=== PATIENT | female | born 2000 | race African-American/Black ===

== ENCOUNTER 2023-06-26 16:27 | Emergency (ER) | payer BC, MEDICAID, SELFPAY ==
[2023-06-26 17:07] VITALS: BP 125/86; PULSE 84; RESP 17; TEMP 36.7; O2SAT 97; BMI 24.7
== END 2023-06-26 21:16 | disposition left against medical advice (07) ==
PROVIDERS: Emergency Provider Family Medicine
DX: Z53.21 Procedure and treatment not carried out due to patient leaving prior to being seen by health care provider (principal)
CPT/HCPCS: 81025

== ENCOUNTER 2023-06-27 11:36 | Emergency (ER) | payer BC, MEDICAID, SELFPAY ==
[2023-06-27 11:50] VITALS: BP 129/74; PULSE 99; RESP 16; TEMP 37.1; O2SAT 96; BMI 24.7
--- NOTE | 2023-06-27 12:14 | W.ED.GENADLT ---
HPI - General Adult General: Chief complaint: Vaginal Bleeding Stated complaint: abd pain, vaginal bleeding Time Seen by Provider: 06/27/23 12:08 Source: patient Mode of arrival: ambulatory Limitations: no limitations History of Present Illness: 23-year-old female states she had vaginal bleeding started yesterday states she just spotting yesterday and started to pass some clots today states her last menstruation was 6 weeks ago she states she may be she had a home test that state was faintly positive. She had some abdominal cramping denies any vomiting or fever Associated symptoms: Deny chest pain, dyspnea, headache(s), nausea, rash or vomiting Review of Systems Const: Denies: fever(s), chills, body aches or change in appetite ENMT: Denies: throat pain or dental pain Card: Denies: chest pain Resp: Denies: dyspnea GI: Reports: abdominal pain; Denies: nausea, vomiting or diarrhea : Reports: vaginal bleeding; Denies: dysuria Musc: Denies: neck pain or back pain Skin/Breast: Denies: rash Neuro: Denies: headache(s) PFSH ED PFSH: Social History Smoking and tobacco/nicotine status: current every day tobacco/nicotine user Physical Exam Const: COMMON NORMALS: no acute distress, patient oriented x3 and healthy appearing HENMT: COMMON NORMALS: normocephalic and atraumatic HEAD & SCALP: normocephalic and atraumatic Eye: COMMON NORMALS: conjunctivae normal CONJUNCTIVA: Yes conjunctivae normal Neck/C-Spine: COMMON NORMALS: full ROM and supple Chest: COMMONS NORMALS: normal inspection of the chest Resp: COMMON NORMALS: normal respiratory effort Cardio: COMMON NORMALS: regular rate, regular rhythm and No murmurs present (Cardio) RATE: regular rate RHYTHM: regular rhythm GI: COMMON NORMALS: Normal to inspection, nondistended, normoactive bowel sounds present, Soft to palpation, non-tender and no masses PALPATION: Yes Soft to palpation Extremity: COMMON NORMALS: normal to inspection and full ROM Neuro: COMMON NORMALS: patient oriented x3, moves all extremities and no focal motor deficits Psych: COMMON NORMALS: mental status grossly normal, Normal thought process present and cooperative THOUGHT PROCESS: Normal thought process present Skin: COMMON NORMALS: no rashes or lesions noted and no wounds GENERAL SKIN EXAM: no rashes or lesions noted Course Vital Signs: Vital signs: Vital Signs Temperature 98.7 F 06/27/23 11:50 Pulse Rate 99 06/27/23 11:50 Respiratory Rate 16 06/27/23 11:50 Blood Pressure 129/74 06/27/23 11:50 Pulse Oximetry 96 06/27/23 11:50 Oxygen Delivery Me thod Room Air 06/27/23 11:50 MDM - General Adult Medical Decision Making Patient presents here with abdominal pain along with vaginal bleeding is likely her menstruation she is not CT scan blood works normal she stable for discharge she is to follow-up with PCP return if worsening she is to take Motrin for pain at home Medical Records I reviewed the patient's medical records. Lab Data I reviewed the patient's lab results. 06/27/23 12:13 06/27/23 12:13 Radiology Impressions Abdomen/Pelvis CT 06/27/23 13:02 IMPRESSION: 1. No evidence of acute abnormality in the abdomen or pelvis. 2. Left-sided renal parenchymal scarring with moderate-severe hydronephrosis, possibly reflecting chronic obstructive uropathy. 3. Nonobstructive 4 mm right-sided renal stone. Laboratory Results WBC 16.76 10^3/uL (3.29-11.43) H 06/27/23 12:13 RBC 4.91 10^6/uL (3.85-5.65) 06/27/23 12:13 Hgb 14.10 g/dL (11.27-16.99) 06/27/23 12:13 Hct 43.8 % (36-47) 06/27/23 12:13 MCV 89.2 fl (85-98) 06/27/23 12:13 MCH 28.7 pg (27-33) 06/27/23 12:13 MCHC 32.2 g/dL (30-55) 06/27/23 12:13 RDW 12.3 % (12.1-15.1) 06/27/23 12:13 Plt Count 337 10^3/cmm (157-399) 06/27/23 12:13 MPV 10.7 fL (7.4-10.4) H 06/27/23 12:13 Neut % (Auto) 92.8 % 06/27/23 12:13 Lymph % (Auto) 5.6 % 06/27/23 12:13 [place] % (Auto) 0.6 % 06/27/23 12:13 Eos % (Auto) 0.1 % 06/27/23 12:13 Baso % (Auto) 0.2 % 06/27/23 12:13 Neut # (Auto) 15.57 10^3/uL (1.8-7.7) H 06/27/23 12:13 Lymph # (Auto) 0.9 10^3/uL (0.8-4.8) 06/27/23 12:13 [place] # (Auto) 0.1 10^3/uL (0.2-0.9) L 06/27/23 12:13 Eos # (Auto) 0.0 10^3/uL (0.0-0.8) 06/27/23 12:13 Baso # (Auto) 0.0 10^3/uL (0.0-0.1) 06/27/23 12:13 Nucleated RBC % (auto) 0 % 06/27/23 12:13 Nucleated RBCs # 0.0 /100WBC 06/27/23 12:13 Sodium 138 mmol/L (136-145) 06/27/23 12:13 Potassium 4.0 mmol/L (3.5-5.1) 06/27/23 12:13 Chloride 105 mmol/L (98-107) 06/27/23 12:13 Carbon Dioxide 23 mmol/L (22-29) 06/27/23 12:13 Anion Gap 14.0 (5-19) 06/27/23 12:13 BUN 18 mg/dL (6-20) 06/27/23 12:13 Creatinine 0.9 mg/dL (0.5-0.9) 06/27/23 12:13 GFR Calculation 93.1 mL/min (90-130) 06/27/23 12:13 Glucose 115 mg/dL (65-115) 06/27/23 12:13 Calculated Osmolality 289 mOsm/kg (285-295) 06/27/23 12:13 Calcium 9.6 mg/dL (8.5-10.5) 06/27/23 12:13 Total Bilirubin 0.3 mg/dL (0.15-1.2) 06/27/23 12:13 AST 35 U/L (0-32) H 06/27/23 12:13 ALT 105 U/L (0-33) H 06/27/23 12:13 Alkaline Phosphatase 101 U/L (35-105) 06/27/23 12:13 Total Protein 7.7 g/dL (6.6-8.7) 06/27/23 12:13 Albumin 4.4 g/dL (3.5-5.2) 06/27/23 12:13 Globulin 3.3 g/dL (1.3-4.6) 06/27/23 12:13 Ser , Semi-Qnt 1.00 mIU/mL 06/27/23 12:13 Urine Color Red (Yellow) A 06/27/23 12:53 Urine Appearance Bloody (CLEAR) A 06/27/23 12:53 Urine pH 6 (5-7) 06/27/23 12:53 Ur Specific [place] 1.020 (1.005-1.030) 06/27/23 12:53 Urine Protein Neg (Negative) 06/27/23 12:53 Urine Glucose (UA) Norm (Normal) 06/27/23 12:53 Urine Ketones Negative (Negative) 06/27/23 12:53 Urine Blood 3+ (Negative) H 06/27/23 12:53 Urine Nitrate Negative (Negative) 06/27/23 12:53 Urine Bilirubin Neg (Negative) 06/27/23 12:53 Urine Urobilinogen Norm mg/dL (Negative) 06/27/23 12:53 Ur Leukocyte Esterase Negative (Negative) 06/27/23 12:53 Urine RBC Too numerous to cnt /hpf (0-2) H 06/27/23 12:53 Urine WBC 5-10 /hpf (0-5) H 06/27/23 12:53 Ur Squamous Epith Cells None /hpf (0-5) 06/27/23 12:53 Amorphous Sediment Not Reportable 06/27/23 12:53 Urine Bacteria 1+ /hpf (NONE) H 06/27/23 12:53 Blood Type O Positive 06/27/23 12:13 Rho(D) Type Rh positive 06/27/23 12:13 Antibody Screen Negative 06/27/23 12:13 All radiology interpretation(s) finalized by discharge Discharge Plan Discharge Patient Disposition: Home Clinical Impression: Vaginal bleeding, Abdominal pain Condition: Stable Prescriptions: No Action albuterol sulfate 90 mcg/actuation HFA aerosol inhaler 2 inh inhalation Q4H PRN (Reason: shortness of breath or wheezing) Qty: 6.7 0RF prednisone 20 mg tablet 60 mg PO DAILY 5 Days Qty: 15 0RF azithromycin [Zithromax] 500 mg tablet 500 mg PO DAILY 5 Days Qty: 5 0RF Zofran 8 mg Tablet 8 mg PO Q8H PRN (Reason: Nausea And Vomiting) olanzapine 10 mg Tablet 10 mg PO QPM baclofen 10 mg Tablet 10 mg PO TID PRN (Reason: Muscle Spasm) propranolol 20 mg Tablet 20 mg PO TID PRN (Reason: Hypertension) buprenorphine-naloxone 8-2 mg Tablet, Sublingual 0.5 tab SUBLINGUAL QAM Discharge Orders: Discharge ED (Routine); Ordered 06/27/23 Ordered By: Jesus Forman Discharge Diet: Advance as tolerated Discharge Activity: Resume usual activity Patient Instructions: Abnormal (Dysfunctional) Uterine Bleeding (ED), Abdominal Pain (ED) Coding Level of Care Code ED [employer] Operator for Brown Ramirez
[2023-06-27 12:21] LABS: Basophils % 0.2 %; Eosinophils % 0.1 %; Hematocrit 43.8 % (36-47); Lymphocytes # 0.9 10^3/uL (0.8-4.8); Lymphocytes % 5.6 %; Mean Corpuscular HGB Conc 32.2 g/dL (30-55); Mean Corpuscular Hemoglobin 28.7 pg (27-33); Mean Corpuscular Volume 89.2 fl (85-98); Mean Platelet Volume 10.7 fL (7.4-10.4); Monocytes # 0.1 10^3/uL (0.2-0.9); Monocytes % 0.6 %; Neutrophils # 15.57 10^3/uL (1.8-7.7); Neutrophils % 92.8 %; Nucleated Red Blood Cells % 0 %; Platelet Count 337 10^3/cmm (157-399); Red Blood Count 4.91 10^6/uL (3.85-5.65); Red Cell Distribution Width 12.3 % (12.1-15.1); White Blood Count 16.76 10^3/uL (3.29-11.43)
[2023-06-27] MEDS: morphine 4 mg/mL SDV 1 mL IVP (12:21)
[2023-06-27] MEDS: ondansetron 2 mg/ML SDV 2 mL 4 MG IVP (12:21)
--- NOTE | 2023-06-27 13:02 | CTR_ITS ---
PROCEDURE INFORMATION: Exam: CT Abdomen And Pelvis With Contrast Exam date and time: 06/27/2023 1:46 PM Age: 23 years old Clinical indication: Abdominal pain; Prior surgery; Surgery date: 6+ months; Surgery type: RT renal stent removal; Open kidney; Additional info: Abd pain TECHNIQUE: Imaging protocol: Computed tomography of the abdomen and pelvis with contrast. Radiation optimization: All CT scans at this facility use at least one of these dose optimization techniques: automated exposure control; mA and/or kV adjustment per patient size (includes targeted exams where dose is matched to clinical indication); or iterative reconstruction. Contrast material: [id number]; Contrast volume: 100 ml; Contrast route: INTRAVENOUS (IV); COMPARISON: No relevant prior studies available. RADIATION DOSE METRICS: Total DLP (mGy-cm): 387.01 FINDINGS: Lungs: Subsegmental bibasilar atelectasis. The visualized lung bases are otherwise grossly clear. Diaphragm: No evidence of diaphragmatic defect. Liver: Hepatic steatosis. No evidence of focal hepatic lesion. Gallbladder and bile ducts: Unremarkable. No intra-hepatic or extra-hepatic biliary dilatation. Pancreas: Unremarkable. Spleen: Unremarkable. Adrenal glands: Unremarkable. Kidneys and ureters: 4 mm nonobstructive right-sided renal stone. Minimal right-sided pelviectasis. There is extensive parenchymal scarring on the left with moderate-severe hydronephrosis, possibly reflecting chronic obstructive uropathy. No evidence of ureteral stone at this time. Stomach and bowel: No evidence of bowel obstruction or perienteric inflammatory changes. Appendix: The appendix is not visualized, however there are no findings to suggest appendicitis. Intraperitoneal space: No evidence of free air or fluid collection. Vasculature: No aneurysmal dilatation or dissection of the abdominal aorta. The celiac trunk, SMA and KALEY are grossly patent. No evidence of IVC thrombus. The portal vein, SMV and splenic veins are grossly patent. Lymph nodes: No adenopathy. Urinary bladder: Grossly unremarkable. Reproductive: Grossly unremarkable. Bones/joints: No evidence of acute fracture or aggressive osseous lesion. Soft tissues: No evidence of fluid collection or hematoma in the superficial soft tissues. CT/CT abdomen pelvis w con* [id number] IMPRESSION: 1. No evidence of acute abnormality in the abdomen or pelvis. 2. Left-sided renal parenchymal scarring with moderate-severe hydronephrosis, possibly reflecting chronic obstructive uropathy. 3. Nonobstructive 4 mm right-sided renal stone.
[2023-06-27 13:08] LABS: Alanine Aminotransferase 105 U/L (0-33); Albumin Level 4.4 g/dL (3.5-5.2); Alkaline Phosphatase 101 U/L (35-105); Aspartate Amino Transferase 35 U/L (0-32); Blood Urea Nitrogen 18 mg/dL (6-20); Calcium 9.6 mg/dL (8.5-10.5); Carbon Dioxide 23 mmol/L (22-29); Chloride 105 mmol/L (98-107); Creatinine Clr Calc Pharmacy 86.4899; Globulin 3.3 g/dL (1.3-4.6); Glomerular Filtration Rate 93.1 mL/min (90-130); Glucose 115 mg/dL (65-115); Osmolality Calculated 289 mOsm/kg (285-295); Sodium 138 mmol/L (136-145); Total Bilirubin 0.3 mg/dL (0.15-1.2); Total Protein 7.7 g/dL (6.6-8.7)
[2023-06-27 13:15] LABS: Add Urine Microscopic? YES; Bilirubin Urine Neg (Negative); Blood Urine 3+ (Negative); Glucose Urine UA Norm (Normal); Ketones Urine Negative (Negative); Leukocyte Esterase Urine Negative (Negative); Nitrate Urine Negative (Negative); Protein Urine Neg (Negative); Urine Appearance Bloody (CLEAR); Urine Color Red (Yellow); Urobilinogen Urine Norm (Negative); pH Urine 6 (5-7)
[2023-06-27 13:16] LABS: Add Urine Culture? Yes; Bacteria Urine 1+ /hpf; RBC Urine TOO NUMEROUS TO CNT /hpf (0-2)
[2023-06-27] MEDS: HYDROmorphone 1 mg/mL INJ 1 mL IVP (13:40)
[2023-06-27] MEDS: iohexol 350 mg/mL 500 mL Btl (per mL) IV (13:51)
[2023-06-27 15:05] VITALS: BP 131/84; PULSE 89; RESP 16; TEMP 37.1; O2SAT 98
== END 2023-06-27 15:06 | disposition home or self-care (01) ==
PROVIDERS: Emergency Provider Emergency Medicine
DX: N93.9 Abnormal uterine and vaginal bleeding, unspecified (principal); R10.9 Unspecified abdominal pain; Z72.0 Tobacco use
CPT/HCPCS: 36415; 74177; 80053; 81001; 84702; 85025; 86850; 86900; 87086; 96374; 96375; 99285; J1170; J2270; J2405; Q9967

== ENCOUNTER → 2023-07-05 11:49 | Outpatient (BNVA) | payer BC, MEDICAID, SELFPAY | PROVIDERS: Visit Provider Nurse Practitioner Family | DX: N92.6 Irregular menstruation, unspecified (principal); Z20.2 Contact with and (suspected) exposure to infections with a predominantly sexual mode of transmission; N76.0 Acute vaginitis; B96.89 Other specified bacterial agents as the cause of diseases classified elsewhere | CPT/HCPCS: 81025; 87491; 87591 ==

== ENCOUNTER 2023-07-10 13:18 | Emergency (ER) | payer BC, MEDICAID, SELFPAY ==
[2023-07-10 13:25] VITALS: BP 116/80; PULSE 97; RESP 17; TEMP 36.8; O2SAT 97; BMI 26.5
[2023-07-10 13:28] VITALS: BP 115/76; PULSE 97; RESP 16; O2SAT 98
--- NOTE | 2023-07-10 13:38 | XRR_ITS ---
PROCEDURE INFORMATION: Exam: XR Chest Exam date and time: 07/10/2023 2:06 PM Age: 23 years old Clinical indication: Cough and shortness of breath; Patient HX: -possible allergic reaction; SOB; Cough; Chest congestion; Additional info: -possible allergic reaction; SOB; Cough; Chest congestion. TECHNIQUE: Imaging protocol: Radiologic exam of the chest. Views: 1 view. COMPARISON: CT abdomen pelvis w con* [id number] 06/27/2023 1:46 PM FINDINGS: Lungs: Unremarkable. No consolidation. Pleural spaces: Unremarkable. No pleural effusion. No pneumothorax. Heart/Mediastinum: Unremarkable. No cardiomegaly. Bones/joints: Unremarkable. XR/XR chest 1V portable [id number] IMPRESSION: No acute findings.
--- NOTE | 2023-07-10 13:40 | W.ED.DENTAL ---
Documented by User: RILEY Rodriguez 07/10/23 15:17 HPI - Dental/Oral General: Chief complaint: Dental/Oral Stated complaint: POSSABLE ALERGIC REACTION Time Seen by Provider: 07/10/23 13:32 Source: patient Mode of arrival: ambulatory Limitations: no limitations History of Present Illness: Patient is a 23-year-old female who presents to the emergency department complaining of mouth pain and sores for the past 2 days. She notes that she began taking Wellbutrin 2 days ago as well, and that was when onset of the sore started. The pain and redness has increased so much to where she cannot eat, drink, or brush her teeth without being in severe pain. She did note the sensation that her throat was swelling, which began today. However she is denying any chest pain, breathing difficulties, palpitations, diaphoresis, chills, skin rash, or other symptoms. She denies ever having a reaction like this in the past. Onset (ago): day(s) Duration: constant Severity: severe Severity scale (1-10): 10 Relieving factors: nothing Exacerbating factors: chewing and swallowing Associated symptoms: Reports odynophagia; Denies ear or mastoid pain or fever(s) Review of Systems General: Reports: 10 or more systems reviewed and unremarkable except in HPI and below Const: Denies: fever(s), chills or fatigue Eyes: Denies: change in vision ENMT: Reports: throat pain, odynophagia, mouth pain and oral sores; Denies: ear or mastoid pain or nasal discharge Card: Denies: chest pain, palpitations, swelling of feet/ankles or lightheadedness Resp: Denies: dyspnea, productive cough or wheezing GI: Denies: abdominal pain, nausea, vomiting, diarrhea or constipation : Denies: flank pain, difficulty voiding, dysuria or urinary frequency Musc: Denies: neck pain, back pain or joint pain Skin/Breast: Denies: rash Neuro: Denies: headache(s), numbness in extremities or weakness in extremities PFSH ED PFSH: Social History Smoking and tobacco/nicotine status: current every day tobacco/nicotine user Physical Exam Const: COMMON NORMALS: no acute distress, patient oriented x3 and no limitations GENERAL APPEARANCE: cooperative, comfortable and well developed ORIENTATION/CONSCIOUSNESS: Yes awake, Yes oriented to person, Yes oriented to place and Yes oriented to time HENMT: COMMON NORMALS: normocephalic, atraumatic and hearing grossly normal bilaterally HEAD & SCALP: normocephalic and atraumatic MOUTH: lip normal and tongue abnormal edematous and discolored; no drooling and no muffled voice THROAT: posterior oropharynx abnormal erythema; no edema and no exudates Eye: COMMON NORMALS: Equal, round and reactive pupils present, EOMs intact bilaterally and conjunctivae normal CONJUNCTIVA: Yes conjunctivae normal PUPIL: Yes Equal, round and reactive pupils present Neck/C-Spine: COMMON NORMALS: full ROM, supple and no JVD Resp: COMMON NORMALS: normal respiratory effort, No retractions, No use of accessory muscles and clear to auscultation bilaterally AUSCULTATION: clear to auscultation bilaterally Cardio: COMMON NORMALS: no JVD, regular rate, regular rhythm, No clicks present (Cardio), No murmurs present (Cardio) and No rub (Cardio) RATE: regular rate RHYTHM: regular rhythm Extremity: COMMON NORMALS: normal to inspection, full ROM and capillary refill normal Neuro: COMMON NORMALS: patient oriented x3, moves all extremities, no focal motor deficits and no sensory deficits noted SENSORIUM/ORIENTATION: Yes oriented to person, Yes oriented to place and Yes oriented to time Psych: COMMON NORMALS: mental status grossly normal and Normal thought process present THOUGHT PROCESS: Normal thought process present Skin: COMMON NORMALS: no rashes or lesions noted GENERAL SKIN EXAM: no rashes or lesions noted Course Vital Signs: Vital signs: Vital Signs Temperature 98.3 F 07/10/23 13:25 Pulse Rate 97 07/10/23 13:28 Respiratory Rate 16 07/10/23 13:28 Blood Pressure 115/76 07/10/23 13:28 Pulse Oximetry 98 07/10/23 13:28 Oxygen Delivery Me thod Room Air 07/10/23 13:28 [facility] - Dental/Oral Medical Decision Making Patient presents for potential allergic reaction. The symptoms started after beginning Wellbutrin 2 days ago. Primarily she is noting pain and sores in her mouth. No airway compromise or oropharyngeal swelling noted on examination. Her vitals have been normal, specifically 97 to 100% O2 saturation on room air. Chest x-ray did not demonstrate any acute findings. Her EKG was unremarkable with a normal QTc specifically noted. Urine negative. Rest of her lab work unremarkable. She did note significant improvement after receiving steroid and Benadryl through IV, and also states that the viscous lidocaine helped a lot. Will send prescription for these and inform her to follow-up with primary care, and specifically to stop taking Wellbutrin until she is able to follow-up. Reasons to return discussed. Lab Data 07/10/23 14:16 07/10/23 14:16 Radiology Impressions Chest X-Ray 07/10/23 13:38 IMPRESSION: No acute findings. Laboratory Results WBC 12.96 10^3/uL (3.29-11.43) H 07/10/23 14:16 RBC 4.58 10^6/uL (3.85-5.65) 07/10/23 14:16 Hgb 13.40 g/dL (11.27-16.99) 07/10/23 14:16 Hct 41.0 % (36-47) 07/10/23 14:16 MCV 89.5 fl (85-98) 07/10/23 14:16 MCH 29.3 pg (27-33) 07/10/23 14:16 MCHC 32.7 g/dL (30-55) 07/10/23 14:16 RDW 12.3 % (12.1-15.1) 07/10/23 14:16 Plt Count 267 10^3/cmm (157-399) 07/10/23 14:16 MPV 10.9 fL (7.4-10.4) H 07/10/23 14:16 Neut % (Auto) 62.2 % 07/10/23 14:16 Lymph % (Auto) 22.1 % 07/10/23 14:16 Frio % (Auto) 12.7 % 07/10/23 14:16 Eos % (Auto) 1.9 % 07/10/23 14:16 Baso % (Auto) 0.3 % 07/10/23 14:16 Neut # (Auto) 8.05 10^3/uL (1.8-7.7) H 07/10/23 14:16 Lymph # (Auto) 2.9 10^3/uL (0.8-4.8) 07/10/23 14:16 Frio # (Auto) 1.7 10^3/uL (0.2-0.9) H 07/10/23 14:16 Eos # (Auto) 0.3 10^3/uL (0.0-0.8) 07/10/23 14:16 Baso # (Auto) 0.0 10^3/uL (0.0-0.1) 07/10/23 14:16 Nucleated RBC % (auto) 0 % 07/10/23 14:16 Nucleated RBCs # 0.0 /100WBC 07/10/23 14:16 Sodium 138 mmol/L (136-145) 07/10/23 14:16 Potassium 4.1 mmol/L (3.5-5.1) 07/10/23 14:16 Chloride 104 mmol/L (98-107) 07/10/23 14:16 Carbon Dioxide 24 mmol/L (22-29) 07/10/23 14:16 Anion Gap 14.1 (5-19) 07/10/23 14:16 BUN 22 mg/dL (6-20) H 07/10/23 14:16 Creatinine 0.8 mg/dL (0.5-0.9) 07/10/23 14:16 GFR Calculation 106.6 mL/min (90-130) 07/10/23 14:16 Glucose 124 mg/dL (65-115) H 07/10/23 14:16 Calculated Osmolality 291 mOsm/kg (285-295) 07/10/23 14:16 Calcium 9.6 mg/dL (8.5-10.5) 07/10/23 14:16 Magnesium 1.7 mg/dL (1.7-2.3) 07/10/23 14:16 Total Bilirubin 0.3 mg/dL (0.15-1.2) 07/10/23 14:16 AST 25 U/L (0-32) 07/10/23 14:16 ALT 38 U/L (0-33) H 07/10/23 14:16 Alkaline Phosphatase 99 U/L (35-105) 07/10/23 14:16 Total Protein 7.4 g/dL (6.6-8.7) 07/10/23 14:16 Albumin 4.1 g/dL (3.5-5.2) 07/10/23 14:16 Globulin 3.3 g/dL (1.3-4.6) 07/10/23 14:16 HCG, Qual Negative (Negative) 07/10/23 13:50 All radiology interpretation(s) finalized by discharge EKG Data EKG 1: I personally reviewed and interpreted this EKG as follows: EKG interpretation date: 07/10/23 EKG interpretation time: 14:09 Prior EKG tracings: not available for review Interpretation: EKG interpreted by me. Normal sinus rhythm. Rate 98. No acute ST segment changes. Normal QTc. Discharge Plan Discharge Patient Disposition: Home Clinical Impression: Allergic reaction Condition: Stable Prescriptions: New Benadryl 25 mg capsule 25 mg PO TID PRN (Reason: allergic reaction) Qty: 30 0RF Lidocaine Viscous 2 % solution 1 applic mucous membrane DAILY PRN (Reason: pain) Qty: 100 0RF No Action metronidazole 500 mg tablet 500 mg PO BID 7 Days Qty: 14 0RF albuterol sulfate 90 mcg/actuation HFA aerosol inhaler 2 inh inhalation Q4H PRN (Reason: shortness of breath or wheezing) Qty: 6.7 0RF ondansetron HCl [Zofran] 8 mg Tablet 8 mg PO TID PRN (Reason: Nausea And Vomiting) baclofen 10 mg Tablet 10 mg PO TID PRN (Reason: Muscle Spasm) propranolol 20 mg Tablet 20 mg PO TID PRN (Reason: Hypertension) buprenorphine-naloxone 8-2 mg Tablet, Sublingual 0.5 tab SUBLINGUAL BID quetiapine 200 mg Tablet 200 mg PO QPM tamsulosin 0.4 mg Capsule 0.4 mg PO QAM bupropion HCl 75 mg Tablet 75 mg PO DAILY Vitamin D2 1,250 mcg (50,000 unit) Capsule 1,250 mcg PO Q7D Rx Instructions: WEDNESDAY MORNING olanzapine 20 mg Tablet 20 mg PO QPM Naprosyn 500 mg Tablet 500 mg PO BID Discharge Orders: Discharge ED (Routine); Ordered 07/10/23 Ordered By: Dylan Gooden Discharge Diet: Usual diet Discharge Activity: Increase activity as tolerated Patient Instructions: Allergic Reaction Activity Restrictions/Additional Instructions: Stop Wellbutrin. Take steroids and Benadryl as prescribed. Viscous lidocaine as needed for relief. Follow-up with your primary care provider. Return with any new or worsening. Coding Level of Care Code ED Director Professional Services for [facility] Documented by User: Russ Veronica DO 07/19/23 06:47 HPI - Dental/Oral General: Chief complaint: Dental/Oral Stated complaint: POSSABLE ALERGIC REACTION Time Seen by Provider: 07/10/23 13:32 PFSH ED PFSH: Social History Smoking and tobacco/nicotine status: current every day tobacco/nicotine user Course Vital Signs: Vital signs: Vital Signs Temperature 98.3 F 07/10/23 13:25 Pulse Rate 97 07/10/23 13:28 Respiratory Rate 16 07/10/23 13:28 Blood Pressure 115/76 07/10/23 13:28 Pulse Oximetry 98 07/10/23 13:28 Oxygen Delivery Me thod Room Air 07/10/23 13:28 MDM - Dental/Oral Medical Decision Making Patient presents for potential allergic reaction. The symptoms started after beginning Wellbutrin 2 days ago. Primarily she is noting pain and sores in her mouth. No airway compromise or oropharyngeal swelling noted on examination. Her vitals have been normal, specifically 97 to 100% O2 saturation on room air. Chest x-ray did not demonstrate any acute findings. Her EKG was unremarkable with a normal QTc specifically noted. Urine negative. Rest of her lab work unremarkable. She did note significant improvement after receiving steroid and Benadryl through IV, and also states that the viscous lidocaine helped a lot. Will send prescription for these and inform her to follow-up with primary care, and specifically to stop taking Wellbutrin until she is able to follow-up. Reasons to return discussed. Chart reviewed Lab Data 07/10/23 14:16 07/10/23 14:16 Radiology Impressions Chest X-Ray 07/10/23 13:38 IMPRESSION: No acute findings. Laboratory Results WBC 12.96 10^3/uL (3.29-11.43) H 07/10/23 14:16 RBC 4.58 10^6/uL (3.85-5.65) 07/10/23 14:16 Hgb 13.40 g/dL (11.27-16.99) 07/10/23 14:16 Hct 41.0 % (36-47) 07/10/23 14:16 MCV 89.5 fl (85-98) 07/10/23 14:16 MCH 29.3 pg (27-33) 07/10/23 14:16 MCHC 32.7 g/dL (30-55) 07/10/23 14:16 RDW 12.3 % (12.1-15.1) 07/10/23 14:16 Plt Count 267 10^3/cmm (157-399) 07/10/23 14:16 MPV 10.9 fL (7.4-10.4) H 07/10/23 14:16 Neut % (Auto) 62.2 % 07/10/23 14:16 Lymph % (Auto) 22.1 % 07/10/23 14:16 Frio % (Auto) 12.7 % 07/10/23 14:16 Eos % (Auto) 1.9 % 07/10/23 14:16 Baso % (Auto) 0.3 % 07/10/23 14:16 Neut # (Auto) 8.05 10^3/uL (1.8-7.7) H 07/10/23 14:16 Lymph # (Auto) 2.9 10^3/uL (0.8-4.8) 07/10/23 14:16 Frio # (Auto) 1.7 10^3/uL (0.2-0.9) H 07/10/23 14:16 Eos # (Auto) 0.3 10^3/uL (0.0-0.8) 07/10/23 14:16 Baso # (Auto) 0.0 10^3/uL (0.0-0.1) 07/10/23 14:16 Nucleated RBC % (auto) 0 % 07/10/23 14:16 Nucleated RBCs # 0.0 /100WBC 07/10/23 14:16 Sodium 138 mmol/L (136-145) 07/10/23 14:16 Potassium 4.1 mmol/L (3.5-5.1) 07/10/23 14:16 Chloride 104 mmol/L (98-107) 07/10/23 14:16 Carbon Dioxide 24 mmol/L (22-29) 07/10/23 14:16 Anion Gap 14.1 (5-19) 07/10/23 14:16 BUN 22 mg/dL (6-20) H 07/10/23 14:16 Creatinine 0.8 mg/dL (0.5-0.9) 07/10/23 14:16 GFR Calculation 106.6 mL/min (90-130) 07/10/23 14:16 Glucose 124 mg/dL (65-115) H 07/10/23 14:16 Calculated Osmolality 291 mOsm/kg (285-295) 07/10/23 14:16 Calcium 9.6 mg/dL (8.5-10.5) 07/10/23 14:16 Magnesium 1.7 mg/dL (1.7-2.3) 07/10/23 14:16 Total Bilirubin 0.3 mg/dL (0.15-1.2) 07/10/23 14:16 AST 25 U/L (0-32) 07/10/23 14:16 ALT 38 U/L (0-33) H 07/10/23 14:16 Alkaline Phosphatase 99 U/L (35-105) 07/10/23 14:16 Total Protein 7.4 g/dL (6.6-8.7) 07/10/23 14:16 Albumin 4.1 g/dL (3.5-5.2) 07/10/23 14:16 Globulin 3.3 g/dL (1.3-4.6) 07/10/23 14:16 HCG, Qual Negative (Negative) 07/10/23 13:50 Discharge Plan Discharge Patient Disposition: Home Clinical Impression: Allergic reaction Condition: Stable Prescriptions: New Benadryl 25 mg capsule 25 mg PO TID PRN (Reason: allergic reaction) Qty: 30 0RF Lidocaine Viscous 2 % solution 1 applic mucous membrane DAILY PRN (Reason: pain) Qty: 100 0RF No Action metronidazole 500 mg tablet 500 mg PO BID 7 Days Qty: 14 0RF albuterol sulfate 90 mcg/actuation HFA aerosol inhaler 2 inh inhalation Q4H PRN (Reason: shortness of breath or wheezing) Qty: 6.7 0RF ondansetron HCl [Zofran] 8 mg Tablet 8 mg PO TID PRN (Reason: Nausea And Vomiting) baclofen 10 mg Tablet 10 mg PO TID PRN (Reason: Muscle Spasm) propranolol 20 mg Tablet 20 mg PO TID PRN (Reason: Hypertension) buprenorphine-naloxone 8-2 mg Tablet, Sublingual 0.5 tab SUBLINGUAL BID quetiapine 200 mg Tablet 200 mg PO QPM tamsulosin 0.4 mg Capsule 0.4 mg PO QAM bupropion HCl 75 mg Tablet 75 mg PO DAILY Vitamin D2 1,250 mcg (50,000 unit) Capsule 1,250 mcg PO Q7D Rx Instructions: WEDNESDAY MORNING olanzapine 20 mg Tablet 20 mg PO QPM Naprosyn 500 mg Tablet 500 mg PO BID Discharge Orders: Discharge ED (Routine); Ordered 07/10/23 Ordered By: Dylan Gooden Discharge Diet: Usual diet Discharge Activity: Increase activity as tolerated Patient Instructions: Allergic Reaction Activity Restrictions/Additional Instructions: Stop Wellbutrin. Take steroids and Benadryl as prescribed. Viscous lidocaine as needed for relief. Follow-up with your primary care provider. Return with any new or worsening. Coding Level of Care Code ED Director Professional Services for [facility]
--- NOTE | 2023-07-10 13:43 | ECG_ITS ---
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 Measurements Intervals [place] Rate: 98 P: 70 MN: 154 QRS: 73 QRSD: 86 T: 55 QT: 360 QTc: 460 Interpretive Statements SINUS RHYTHM No previous ECG available for comparison Electronically Signed On 07-10-2023 20:27:09 CDT by Kristina Loo M.D. [id number]
--- NOTE | 2023-07-10 13:54 | PC.PHAR ---
Addendum entered by Gisell Hernandez 07/10/23 14:07: [facility] Original Note: PT IS FROM [facility] AND CARRIES HER MEDICATION ADMINISTRATION RECORD WITH HER.
[2023-07-10 14:03] LABS: HCG Qualitative Urine. Negative (Negative)
[2023-07-10] MEDS: lidocaine 2% viscous 15 mL UDC MUCOUS MEM (14:06)
[2023-07-10 14:21] LABS: Basophils % 0.3 %; Eosinophils # 0.3 10^3/uL (0.0-0.8); Eosinophils % 1.9 %; Lymphocytes # 2.9 10^3/uL (0.8-4.8); Lymphocytes % 22.1 %; Mean Corpuscular HGB Conc 32.7 g/dL (30-55); Mean Corpuscular Hemoglobin 29.3 pg (27-33); Mean Corpuscular Volume 89.5 fl (85-98); Mean Platelet Volume 10.9 fL (7.4-10.4); Monocytes # 1.7 10^3/uL (0.2-0.9); Monocytes % 12.7 %; Neutrophils # 8.05 10^3/uL (1.8-7.7); Neutrophils % 62.2 %; Nucleated Red Blood Cells % 0 %; Platelet Count 267 10^3/cmm (157-399); Red Blood Count 4.58 10^6/uL (3.85-5.65); Red Cell Distribution Width 12.3 % (12.1-15.1); White Blood Count 12.96 10^3/uL (3.29-11.43)
[2023-07-10 14:39] LABS: Alanine Aminotransferase 38 U/L (0-33); Albumin Level 4.1 g/dL (3.5-5.2); Alkaline Phosphatase 99 U/L (35-105); Anion Gap 14.1 (5-19); Aspartate Amino Transferase 25 U/L (0-32); Blood Urea Nitrogen 22 mg/dL (6-20); Calcium 9.6 mg/dL (8.5-10.5); Carbon Dioxide 24 mmol/L (22-29); Chloride 104 mmol/L (98-107); Globulin 3.3 g/dL (1.3-4.6); Glomerular Filtration Rate 106.6 mL/min (90-130); Glucose 124 mg/dL (65-115); Magnesium 1.7 mg/dL (1.7-2.3); Osmolality Calculated 291 mOsm/kg (285-295); Potassium 4.1 mmol/L (3.5-5.1); Sodium 138 mmol/L (136-145); Total Bilirubin 0.3 mg/dL (0.15-1.2); Total Protein 7.4 g/dL (6.6-8.7)
[2023-07-10] MEDS: diphenhydrAMINE 50 mg/mL SDV 1mL IVP (14:45)
[2023-07-10] MEDS: dexamethasone 10 mg/mL INJ 8 MG IVP (14:45)
[2023-07-10] MEDS: sodium chloride 0.9% 1,000 ML 999 ML IV (14:45)
== END 2023-07-10 15:41 | disposition home or self-care (01) ==
PROVIDERS: Emergency Provider Physician Assistant
DX: T78.40XA Allergy, unspecified, initial encounter (principal); Z72.0 Tobacco use; X58.XXXA Exposure to other specified factors, initial encounter
CPT/HCPCS: 71045; 80053; 81025; 83735; 85025; 93005; 96374; 96375; 99285; J1100; J1200; J7030